=== PATIENT | male | born 1945 | race Caucasian/White ===

== ENCOUNTER 2020-07-09 07:52 | Outpatient (CLI) | payer MEDICARE, OTHER ==
--- NOTE | 2020-07-09 08:46 | SLEEP CARE CONSULTATION ---
Information from patient questionnaire entered by Susy Mccracken. I have reviewed and concur with the information entered by Susy Mccracken. This document represents the service I personally performed and the decisions made by me, Nina Godinez ARNP. History of Present Illness Service Date and Time: 07/09/2020 0752 Reason for Visit: New patient Chief Complaint: reports: Unrefreshed sleep, Snoring, Observed pauses in breathing. denies: Insomnia, Excessive daytime sleepiness, Fatigue, Frequent awakenings at night Date of Onset: 30 years Usual bedtime: 2300 Time it takes to fall asleep: 5 minutes Snores at night: Yes Observed to quit breathing while asleep: Yes Sleeps alone due to snoring: No Number of times waking at night: 1 Reasons for waking at night: reports: Gasping for air (saying can't breathe in the middle of the night per his , "can't catch my breath"), Bathroom. denies: Choking, Snoring Toss, Turn, or Twitch while sleeping: Yes Recalls having dreams: Yes Usually gets out of bed at: 0630 Feels refreshed in the morning: No Morning headache: No Sleepy or fatigued during the day: No Ever fallen asleep while driving: Yes (rarely, dozing off; no accidents) Takes day naps: No Dreams during day naps: No Prior sleep studies: No Additional HPI information: I had the pleasure of seeing MIGUEL ÁNGEL CHAVEZ today regarding the possibility of him having a sleep disorder. His current complaints are snoring and witnessed pauses of breathing during sleep. He states his is concerned because she has seen him stopping breathing during his sleep. He has also had times when he is gasping in his sleep and saying he "can't breathe". He does not feel sleepy when he gets up in the morning but cannot say he feels like he has energy after a full night of sleep. He goes to bed around 2300 and gets up at 0630 in the morning. He only gets up 1-2 times for the bathroom during the night. He has experienced drowsiness while driving and even caught himself dozing off, but denies any accidents from falling asleep at the wheel. He has a history of coronary artery disease but denies hypertension, diabetes, stroke or depression. - Parasomnia Symptoms Ever been unable to move upon waking from sleep: No Walks in sleep: Yes (years ago, under a certain medication; not in last 10 years) Talks in sleep: No Ever acted out dreams in sleep: No Ever felt weak in the knees when startled or emotional: No Bothered by creepy, crawly, restless sensations in legs: No Problems with memory or concentration: Yes (age related only) Subjective Initial Arma Sleepiness Scale score: 5 (in 2019) Past Medical History Past Medical History: reports: Arthritis, Coronary Heart Disease (aortic aneurysm), Other (spots on lungs). denies: Hypertension, Congestive Heart Failure, Diabetes, Stroke, Arrythmia, Hypothyroidism, Anemia, Anxiety, Impotence, Depression, Mood disorder, GERD, Attention deficit Social History The patient's occupation is retired. Patient is and lives in [place]. Have you smoked in the past 12 months: No Cigarettes per day (20/pack): 40 Years of smokin (20+ years) Quit date: 1990 Smoking Pack Years: 40.0 Alcohol use: Yes Alcohol amount and frequency: 1 glass wine, once/month Caffeine use: Yes Caffeine amount and frequency: 1 cup coffee once a week Family History Family history of sleep disordered breathing: No Allergies and Home Medications Drug allergies reviewed: Yes (NKDA) Home medication list reviewed: Yes Allergy and home medication list: aspirin 81 mg atorvastatin 20 mg gabapentin 400 mg montekulast sodium 10 mg Flexeril symbicort/budesonide 160 mg Review of Systems Weight loss over past 5 years: 5 Cardiovascular: denies: high blood pressure, palpitations, chest pain, irregular heart rate or pulse, leg or foot swelling Respiratory: reports: shortness of breath, chronic cough Gastrointestinal: reports: heartburn (occasional, few and far between). denies: difficulty swallowing Urinary: reports: frequency Neurological: denies: headaches, seizure, head trauma, speech dysfunction, gait or balance problems Psychiatric: denies: anxiety, depression, mood disorder, claustrophobia Ear/Nose/Throat: reports: tonsillectomy, wisdom teeth removed. denies: nasal congestion, sinus problems, nose bleeds, dry mouth/throat, injury to nose Endocrine: denies: thyroid disease Musculoskeletal: reports: joint pain, back pain, muscle pain or cramping Immunologic: denies: allergies to food or environment Physical Exam Blood Pressure: 125/76 Cuff size: regular Heart Rate: 55 O2 Saturation: 98 Height: 5 ft 9 in Weight: 159 lb 12.8 oz Body Mass Index: 23.6 BMI Classification: Healthy weight HEENT: No craniofacial malformation Nostrils: patent to airflow Turbinates: normal Septum: midline Mouth and throat: narrow oropharynx Soft palate: normal Hard palate: arched Uvula: normal Uvula visualization: 50% Mallampati Class II Tongue: normal in size Tonsils: absent bilaterally Chin and jaw: normal size and position Neck: normal w/o lymphadenopathy or thyromegaly Heart: regular rate and rhythm Lungs: clear bilaterally Impression and Plan 1. Suspected Obstructive Sleep Apnea-Hypopnea Syndrome, as suggested by a history of loud and irregular snoring, observed cessation of breath while asleep, gasping or choking in sleep, and unrefreshed sleep. Narrow oropharynx and obesity are common predisposing factors for obstructive sleep apnea-hypopnea syndrome. Patient has a history of coronary heart disease. I recommend proceeding to polysomnography to confirm the diagnosis and to assess severity. If the patient has significant sleep disordered breathing, a manual CPAP titration study will also be performed to find the optimal treatment pressure. I informed the patient of what the sleep studies involve and after some discussion, obtained agreement to proceed. The pathophysiology of obstructive sleep apnea-hypopnea syndrome was discussed with the patient and health risks of cardiovascular and cerebrovascular disease if not treated. AASM brochure for obstructive sleep apnea-hypopnea syndrome given and reviewed. Risks of drowsy driving discussed in detail and patient advised to avoid long distance driving and to tub puller at the first sign of drowsiness. Patient agreed to plan. * Schedule polysomnography +- manual CPAP titration study. * Avoid long distance driving or driving when feeling sleepy. * Avoid alcohol, sedative and muscle relaxant around bedtime. * Attempt to lose weight. * Review instructions provided by trained office staff on how to prepare for the sleep study. * Return for follow-up after sleep study completed. Visit Type: In Office Time Spent with Patient (minutes): 32 Provider Statement: I spent 100% of the Face to Face Visit with the patient with greater than 50% spent counseling the patient and coordination of care.
[2020-07-09 08:47] VITALS: BP 125/76
== END 2020-07-09 07:53 | disposition home or self-care (01) ==
LOC: SC 07:52
PROVIDERS: ATTEND Nurse Practitioner Family
DX: G47.8 Other sleep disorders (principal); R06.81 Apnea, not elsewhere classified; R06.83 Snoring; I25.10 Atherosclerotic heart disease of native coronary artery without angina pectoris
CPT/HCPCS: 99204; G0463; 99212

== ENCOUNTER 2021-08-26 07:57 | Outpatient (CLI) | payer MEDICARE, OTHER ==
--- NOTE | 2021-08-26 09:47 | CT Report ---
PROCEDURE: CHEST WO INDICATIONS: DYSPNEA, COPD, WHEEZING TECHNIQUE: Noncontrast 1mm axial images were acquired from the pulmonary apices to the posterior costophrenic an gles. Axial 5 mm soft tissue kernel reconstructions were performed as well as 8 mm axial MIP and cor onal and sagittal 5 mm reformations. For radiation dose reduction, the following was used: automate d exposure control, adjustment of mA and/or kV according to patient size. COMPARISON: None. FINDINGS: Image quality: Excellent. Lungs and pleura: Mild diffuse subpleural reticular thickening. Right lower lobe subpleural pulmonar y nodule measuring 0.3 cm. Left upper lobe calcified granuloma. No groundglass opacity. No honeycombi ng. Airways are clear. No pleural effusions or pneumothorax. Mediastinum: Heart size is normal. Mild coronary artery calcifications. No pericardial effusion. No mediastinal adenopathy by size criteria. Ascending aorta measures 4.3 cm, (07/22). Mild calcified ath erosclerotic plaque. Pulmonary arteries are within normal limits. Esophagus is normal in caliber. Sma ll hiatal hernia. Bones and chest wall: No suspicious bony lesions. No vertebral body compression fractures. No axil margaux or supraclavicular adenopathy by size criteria. The thyroid is normal in size and there are no incidental findings. Abdomen: Hepatic and splenic calcified granuloma. Small renal cysts. Suspect right kidney extrarenal pelvis. Left kidney punctate nonobstructing kidney stone suspected. No adrenal nodule. No free fluid. IMPRESSION: 1. Mild diffuse subpleural reticular thickening. This could be seen in early interstitial lung diseas e or pulmonary fibrosis. Recommend clinical correlation. The patient may benefit from pulmonary consu ltation and/or high-resolution chest CT. 2. Ascending aortic aneurysm measuring 4.3 cm. 3. Small hiatal hernia. 4. Suspect small nonobstructing left kidney stone. Reviewed by: Thor Carpio MD on 08/26/2021 9:46 AM PDT Approved by: Tohr Carpio MD on 08/26/2021 9:46 AM PDT Station ID: [id number]
== END 2021-08-26 07:58 | disposition home or self-care (01) ==
LOC: DI 07:57
PROVIDERS: ATTEND Physician Assistant
DX: R91.8 Other nonspecific abnormal finding of lung field (principal); I71.2 Thoracic aortic aneurysm, without rupture; K44.9 Diaphragmatic hernia without obstruction or gangrene

== ENCOUNTER 2021-08-31 09:30 | Outpatient (CLI) | payer MEDICARE, OTHER ==
[2021-08-31] MEDS ORDERED: ALBUTEROL 1 PUFF INH STA (15:50)
== END 2021-08-31 09:31 | disposition home or self-care (01) ==
LOC: RT 09:30
PROVIDERS: ATTEND Physician Assistant
DX: R06.2 Wheezing (principal); J44.9 Chronic obstructive pulmonary disease, unspecified; R06.00 Dyspnea, unspecified
CPT/HCPCS: 94060

== ENCOUNTER 2024-04-19 18:30 | Emergency (ER) | payer MEDICARE, OTHER ==
[2024-04-19 20:33] LABS: BASOPHILS # (AUTO) 0.1 10^3/uL (0.0-0.1); BASOPHILS % (AUTO) 0.3 %; EOSINOPHILS % (AUTO) 0.1 %; HCT - HEMATOCRIT 42.2 % (42.0-52.0); HGB - HEMOGLOBIN 14.4 g/dL (14.0-18.0); LYMPHOCYTES # (AUTO) 0.6 10^3/uL (1.5-3.5); LYMPHOCYTES % (AUTO) 3.8 %; MEAN CORPUSCULAR HEMOGLOBIN 32.1 pg (27.0-31.0); MEAN CORPUSCULAR HGB CONC 34.1 g/dL (32.0-36.0); MEAN CORPUSCULAR VOLUME 94.2 fL (80.0-94.0); MEAN PLATELET VOLUME 9.1 fL (7.4-11.4); MONOCYTES # (AUTO) 0.8 10^3/uL (0.0-1.0); MONOCYTES % (AUTO) 5.1 %; NEUTROPHILS # (AUTO) 13.2 10^3/uL (1.5-6.6); NEUTROPHILS % (AUTO) 90.4 %; PLT - PLATELET COUNT 210 10^3/uL (130-450); RED BLOOD COUNT 4.48 10^6/uL (4.70-6.10); RED CELL DISTRIBUTION WIDTH 14.4 % (12.0-15.0); WHITE BLOOD COUNT 14.7 x10^3/uL (4.8-10.8)
[2024-04-19 20:52] LABS: ALBUMIN 4.2 g/dL (3.2-5.5); ALBUMIN/GLOBULIN RATIO 1.3 (1.0-2.2); BILIRUBIN,TOTAL 0.9 mg/dL (0.2-1.0); CALCIUM 9.4 mg/dL (8.5-10.3); CREATININE 1.2 mg/dL (0.6-1.3); POTASSIUM 3.9 mmol/L (3.5-4.5); TOTAL PROTEIN 7.4 g/dL (6.4-8.9)
[2024-04-19] MEDS ORDERED: iohexoL-300 100 ML VIAL ONE (21:36)
--- NOTE | 2024-04-19 21:39 | ED Physician Documentation ---
History of Present Illness - Stated complaint Stated Complaint: ABD PX/VOMIT - Chief complaint Chief Complaint: Abd Pain - History obtained from History obtained from: Patient - Additonal information Additional information: 78yM with pmh sbo, duodenal ulcer s/p open laparotomy several years ago p/w nbnb n/v X 1 day and inability to pass flatus. he did have a brown stool around 2pm today before symptoms started.denies fever, urinary sx PD PAST MEDICAL HISTORY - Allergies Allergies/Adverse Reactions: Allergies Allergy/AdvReac Type Severity Reaction Status Date / Time No Known Drug Allergies Allergy Verified 04/19/24 19:43 PD ED PE NORMAL - Vitals Vital signs reviewed: Yes - General General: Alert and oriented X 3, No acute distress, Well developed/nourished - HEENT HEENT: Atraumatic, PERRL, EOMI, Moist mucous membranes, Pharynx benign - Neck Neck: Supple, no meningeal sign - Cardiac Cardiac: RRR - Respiratory Respiratory: No respiratory distress, Clear bilaterally - Abdomen Abdomen: Non tender, Non distended - Back Back: No CVA TTP - Derm Derm: Normal color, Warm and dry - Neuro Neuro: Alert and oriented X 3 Results - Vitals Vitals: Vital Signs - 24 hr 04/19/24 19:15 Temperature 36.4 C L Heart Rate 57 L Respiratory 16 Rate Blood Pressure 117/113 H O2 Saturation 99 Oxygen O2 Source Room air - Labs Labs: Laboratory Tests 04/19/24 04/19/24 04/19/24 20:28 20:28 23:00 WBC 14.7 H RBC 4.48 L Hgb 14.4 Hct 42.2 MCV 94.2 H MCH 32.1 H MCHC 34.1 RDW 14.4 Plt Count 210 MPV 9.1 Neut # (Auto) 13.2 H Lymph # (Auto) 0.6 L [place] # (Auto) 0.8 Eos # (Auto) 0.0 Baso # (Auto) 0.1 Absolute Nucleated RBC 0.00 Nucleated RBC % 0.0 Sodium 139 Potassium 3.9 Chloride 103 Carbon Dioxide 27 Anion Gap 9.0 BUN 19 Creatinine 1.2 Estimated GFR (MDRD) 59 L Glucose 123 H Calcium 9.4 Total Bilirubin 0.9 AST 18 ALT 14 Alkaline Phosphatase 52 Total Protein 7.4 Albumin 4.2 Globulin 3.2 Albumin/Globulin Ratio 1.3 Lipase 17 Urine Color YELLOW Urine Clarity CLEAR Urine pH 6.5 Ur Specific [place] 1.015 Urine Protein 100 H Urine Glucose (UA) NEGATIVE Urine Ketones TRACE Urine Occult Blood LARGE H Urine Nitrite NEGATIVE Urine Bilirubin NEGATIVE Urine Urobilinogen 0.2 (NORMAL) Ur Leukocyte Esterase NEGATIVE Urine RBC TNTC H Urine WBC 4-5 Ur Squamous Epith Cells RARE Squamous Urine Bacteria None Seen Ur Microscopic Review INDICATED Urine Culture Comments NOT INDICATED PD Medical Decision Making - ED course ED course: 78yM p/w epigastric pain, n/v X 1 day, with prior history of duodenal ulcer and bowel obstruction. labwork is benign aside from leukocytosis with wbc 14.7. plan to obtain CT a/p, provide IV fluids, IV morphine, and reevaluate. Patient feeling better, with benign u/a and ct report. plan to f/u outpatient with pcp. return precautions given. Departure - Departure Disposition: 01 Home, Self Care Clinical Impression: Abdominal pain Condition: Stable Instructions: Abdominal Pain Comments: You were seen in the emergency department for abdominal pain. Your CT showed no acute cause for your symptoms. Please follow-up with your primary care provider and return to the emergency department if you have any new or worsening symptoms or other concerns. Forms: PCP List
[2024-04-19] MEDS: iohexoL-300 100 ML VIAL IVP ONE (21:54)
[2024-04-19] MEDS: MORPHINE 2 MG/ML CARPUJECT IVP STA (22:07)
[2024-04-19] MEDS: SODIUM CHLORIDE 0.9% 1,000 ML IV STA (22:07)
[2024-04-19 23:28] LABS: BILIRUBIN,URINE NEGATIVE (NEGATIVE); GLUCOSE, URINE (UA) NEGATIVE (NEGATIVE); KETONES,URINE (UA) TRACE mg/dL (NEGATIVE); LEUKOCYTE ESTERASE, URINE NEGATIVE (NEGATIVE); NITRITE,URINE NEGATIVE (NEGATIVE); OCCULT BLOOD,URINE LARGE (NEGATIVE); PH,URINE 6.5 PH (5.0-7.5); PROTEIN,URINE 100 mg/dL (NEGATIVE); UROBILINOGEN,URINE 0.2 (NORMAL) E.U./dL (NORMAL)
[2024-04-19 23:41] LABS: CLARITY,URINE CLEAR (CLEAR); RBC,URINE TNTC /HPF (0-5)
--- NOTE | 2024-04-19 23:41 | CT Report ---
PROCEDURE: Abdomen/Pelvis W INDICATIONS: n/v abdominal pain, hx sbo CONTRAST: Omni 300, 100mls TECHNIQUE: After the administration of intravenous contrast, a CT scan of the abdomen and pelvis was performed. Images were recorded and evaluated at appropriate window settings. Reformats: coronal and sagittal. F or radiation dose reduction, the following was used: automated exposure control, adjustment of mA and /or kV according to patient size. COMPARISON: None. FINDINGS: Image quality: Motion artifact. Lower chest: Unremarkable. Liver: No solid mass. Subcentimeter hypodensities are too small to characterize, probable cysts. Gallbladder: No radiopaque stones or wall thickening. Biliary tree: No intrahepatic or extrahepatic dilation, accounting for age. Spleen: No splenomegaly. Pancreas: No pancreatic ductal dilation. Adrenals: No adrenal nodule. Kidneys and ureters: Moderate right hydronephrosis with suggestion of increased enhancement of proxim al ureter and trace perirenal fluid. No right ureterolithiasis or hydroureter. No nephrolithiasis [place] al cystic lesion which requires follow up. No solid mass. Stomach, bowel and peritoneum: Small hiatal hernia. No gastric or small bowel dilation. No abnormal w all thickening. No pathologic free fluid. Diverticulosis without evidence of diverticulitis. Lymph nodes: No central or retroperitoneal adenopathy. Vessels: No infrarenal aortic aneurysm. Patent portal vein. Aortobiiliac atherosclerotic calcificatio ns. PELVIS Reproductive organs: Enlarged prostate. Bladder: Marked bladder wall thickening with mucosal enhancement and fatty stranding. Findings may re present cystitis. Pelvic lymph nodes: No pelvic adenopathy by size criteria. Bones: No aggressive osseous abnormality. Other: No significant ventral or inguinal hernia. IMPRESSION: No small bowel obstruction as clinically queried. Circumferential bladder wall thickening with mucosal enhancement is concerning for cystitis of infect ious or inflammatory etiology. Recommend correlation with urinalysis and urine culture. Moderate right hydronephrosis with mildly increased enhancement of the proximal ureter. No obstructin g ureteral calculus identified. Consider further evaluation with nonemergent CT IVP if clinically yolis ropriate. Diverticulosis without CT evidence of acute diverticulitis Reviewed by: Sandra Cee MD, PhD on 04/19/2024 11:40 PM PDT Approved by: Sandra Cee MD, PhD on 04/19/2024 11:40 PM PDT Station ID: [id number]
[2024-04-19 23:42] LABS: BACTERIA,URINE None Seen /HPF (None Seen); SQUAMOUS EPITHELIAL CELL,UR RARE Squamous (<= Few)
[2024-04-19 23:55] VITALS: BP 121/88; O2SAT 97
== END 2024-04-19 23:52 | disposition home or self-care (01) ==
LOC: ED 18:30
DX: R11.2 Nausea with vomiting, unspecified (principal); R10.13 Epigastric pain
CPT/HCPCS: 36415; 74177; 80053; 81001; 83690; 85025; 96374; 99284; Q9967; 81003; 87086